=== PATIENT | male | born 1965 | race Caucasian/White ===

== ENCOUNTER 2020-12-10 02:21 | Emergency (ER) | payer OTHER ==
[~2020-12-10] VITALS: Ht 182.9 cm; Wt 113.6 kg
[2020-12-10] MEDS ORDERED: ACETAMINOPHEN 500 MG TABLET PO ONE (02:45)
[2020-12-10] MEDS ORDERED: ONDANSETRON HCL 4 MG TABLET PO ONE (02:45)
[2020-12-10] MEDS ORDERED: HYDR-4031 PO (02:52)
[2020-12-10] MEDS ORDERED: ASPI-1450 PO (02:52)
[2020-12-10] MEDS ORDERED: DULO30CA89 PO (02:52)
[2020-12-10] MEDS ORDERED: OxyCODONE HCL 5 MG IR TABLET PO ONE (04:45)
[2020-12-10 06:04] VITALS: BP 132/85
== END 2020-12-10 06:30 | disposition home or self-care (01) ==
LOC: EMS 02:24
DX: S06.0X9A Concussion with loss of consciousness of unspecified duration, initial encounter (principal); S02.2XXA Fracture of nasal bones, initial encounter for closed fracture; Z79.899 Other long term (current) drug therapy; Y04.0XXA Assault by unarmed brawl or fight, initial encounter; Y93.89 Activity, other specified; Y92.89 Other specified places as the place of occurrence of the external cause; Y99.8 Other external cause status
CPT/HCPCS: 70450; 70486; 72125; 99285; Q0162